=== PATIENT | female | born 1990 | race Caucasian/White ===

== ENCOUNTER 2019-01-02 13:38 | Emergency (ER) | payer MEDICAID, OTHER ==
[~2019-01-02] VITALS: Ht 170.2 cm; Wt 64.0 kg
[~2019-01-02 13:38] MED LIST: NITR100C6 PO
[2019-01-02 13:47] VITALS: BP 136/84
[2019-01-02] MEDS ORDERED: ibuprofen 200mg tablet PO ONE (13:55)
--- NOTE | 2019-01-02 14:15 | NUR ---
Pt has CCC x 4-5 days as well as tooth pain. Pt medicated for fever.
[2019-01-02] MEDS ORDERED: CLIN300C85 PO (14:19)
--- NOTE | 2019-01-02 14:29 | NUR ---
Pt ready for DC. Pt Temp is 102.5 after being medicated 25 minutes ago. Pt to recheck temp at home and take tylenol additionally if fever is not being controlled. Pt advised to return if fever not controlled with medications.
== END 2019-01-02 14:31 | disposition home or self-care (01) ==
LOC: ER 13:39
DX: K02.9 Dental caries, unspecified (principal); Z88.1 Allergy status to other antibiotic agents; Z88.8 Allergy status to other drugs, medicaments and biological substances; Z79.899 Other long term (current) drug therapy
CPT/HCPCS: 99283

== ENCOUNTER 2019-04-07 22:54 | Emergency (ER) | payer MEDICAID, OTHER ==
[~2019-04-07] VITALS: Ht 170.2 cm; Wt 59.3 kg
[~2019-04-07 22:54] MED LIST changes: +CLIN-96 PO
[2019-04-07 23:04] VITALS: BP 88/61
[2019-04-08] MEDS ORDERED: proparacaine 0.5% ophthalmic drops 15ml EACHEYE ONE (00:10)
[2019-04-08] MEDS ORDERED: ciprofloxacin 0.3% 2.5ml ophthalmic solution LEFTEYE SCH (01:14)
[2019-04-08] MEDS ORDERED: erythromycin ophthalmic ointment 1gm tube EACHEYE ONE (01:15)
== END 2019-04-08 01:30 | disposition home or self-care (01) ==
LOC: ER 22:54
DX: S05.02XA Injury of conjunctiva and corneal abrasion without foreign body, left eye, initial encounter (principal); Z88.1 Allergy status to other antibiotic agents; Z88.8 Allergy status to other drugs, medicaments and biological substances; X58.XXXA Exposure to other specified factors, initial encounter; Y93.89 Activity, other specified; Y92.89 Other specified places as the place of occurrence of the external cause; Y99.8 Other external cause status
CPT/HCPCS: 99283

== ENCOUNTER 2019-04-08 23:15 | Emergency (ER) | payer OTHER ==
[~2019-04-08] VITALS: Ht 170.2 cm; Wt 55.4 kg
[2019-04-08 23:22] VITALS: BP 101/69
[2019-04-08] MEDS ORDERED: proparacaine 0.5% ophthalmic drops 15ml EACHEYE ONE (23:55)
[2019-04-08] MEDS ORDERED: pilocarpine 2% ophthalmic drops 15ml EACHEYE ONE (23:55)
== END 2019-04-09 01:23 | disposition home or self-care (01) ==
LOC: ER 23:16
DX: H44.002 Unspecified purulent endophthalmitis, left eye (principal); Z88.1 Allergy status to other antibiotic agents; Z88.8 Allergy status to other drugs, medicaments and biological substances; Z79.899 Other long term (current) drug therapy
CPT/HCPCS: 99283

== ENCOUNTER 2019-08-19 12:26 | Emergency (ER) | payer SELFPAY ==
[~2019-08-19] VITALS: Ht 170.2 cm; Wt 58.5 kg
[~2019-08-19 12:26] MED LIST changes: +CLIN-90 PO; -CLIN-96 PO
[2019-08-19 12:33] VITALS: BP 107/70
[2019-08-19] MEDS ORDERED: CLIN-90 PO (13:17)
== END 2019-08-19 13:31 | disposition home or self-care (01) ==
LOC: ER 12:26
DX: K08.89 Other specified disorders of teeth and supporting structures (principal); Z88.1 Allergy status to other antibiotic agents
CPT/HCPCS: 99283

== ENCOUNTER 2020-07-22 08:20 | Emergency (ER) | payer MEDICAID ==
[~2020-07-22] VITALS: Ht 170.2 cm; Wt 61.4 kg
[~2020-07-22 08:20] MED LIST changes: -CLIN-90 PO; +CLIN-97 PO
[2020-07-22 08:35] VITALS: BP 119/69
[2020-07-22 11:18] LABS: BASOPHILS # (AUTO) 0.1 X10'3 (0-0.2); BASOPHILS % (AUTO) 1.1 % (0-1); EOSINOPHILS # (AUTO) 0.2 X10'3 (0-0.9); EOSINOPHILS % (AUTO) 1.7 % (0-6); HEMATOCRIT 34.6 % (35.0-45.0); HEMOGLOBIN 11.3 g/dl (12.0-16.0); LYMPHOCYTES # (AUTO) 1.4 X10'3 (1.1-4.8); MEAN CORPUSCULAR HEMOGLOBIN 28.7 PG (27.0-31.0); MEAN CORPUSCULAR HGB CONC 32.8 g/dL (33.0-36.5); MEAN CORPUSCULAR VOLUME 87.4 FL (78-98); MEAN PLATELET VOLUME 7.8 FL (7.4-10.4); MONOCYTES # (AUTO) 1.1 X10'3 (0-0.9); MONOCYTES % (AUTO) 11.4 % (2-12); NEUTROPHILS % (AUTO) 71.8 % (42-75); PLATELET COUNT 368 X10'3 (140-440); RED BLOOD COUNT 3.96 X10'6 (4.20-5.60); RED CELL DISTRIBUTION WIDTH 15.6 % (11.5-14.5); WHITE BLOOD COUNT 9.8 X10'3 (4.5-11.0)
[2020-07-22 11:38] LABS: ALANINE AMINOTRANSFERASE 61 U/L (12-78); ALBUMIN 3.6 G/DL (3.4-5.0); ALBUMIN/GLOBULIN RATIO 0.9 (1.1-1.5); ALKALINE PHOSPHATASE 69 IU/L (46-116); ANION GAP 5 (8-16); ASPARTATE AMINO TRANSFERASE 61 U/L (10-37); BILIRUBIN,TOTAL 0.5 MG/DL (0.1-1.0); BLOOD UREA NITROGEN 8 MG/DL (7-18); BUN/CREATININE RATIO 10.8 (6.6-38.0); CALCIUM 8.9 MG/DL (8.5-10.1); CHLORIDE 102 MMOL/L (99-107); CREATININE 0.74 MG/DL (0.40-0.90); GLUCOSE 96 MG/DL (70-104); POTASSIUM 3.8 MMOL/L (3.5-5.1); SODIUM 137 MMOL/L (135-145); TOTAL CARBON DIOXIDE 30.1 MMOL/L (24-32); TOTAL PROTEIN 7.6 G/DL (6.4-8.2); eGFR > 90 ML/MIN
[2020-07-22] MEDS ORDERED: CEPH250T PO (11:45)
[2020-07-22] MEDS ORDERED: DOXY100C77 PO (11:45)
== END 2020-07-22 12:22 | disposition home or self-care (01) ==
LOC: ER 08:21
DX: L03.116 Cellulitis of left lower limb (principal); M25.571 Pain in right ankle and joints of right foot; M25.572 Pain in left ankle and joints of left foot; R60.0 Localized edema; F17.200 Nicotine dependence, unspecified, uncomplicated; Z88.1 Allergy status to other antibiotic agents; Z88.8 Allergy status to other drugs, medicaments and biological substances; Z79.2 Long term (current) use of antibiotics; Z79.899 Other long term (current) drug therapy
CPT/HCPCS: 36415; 73610; 80053; 85025; 85651; 99284

== ENCOUNTER 2021-02-08 11:00 | Emergency (ER) | payer MEDICAID ==
[~2021-02-08] VITALS: Ht 170.2 cm; Wt 70.0 kg
[2021-02-08 11:03] VITALS: BP 115/68
--- NOTE | 2021-02-08 14:23 | NUR ---
NOT IN LOBBY
[2021-02-10] MEDS ORDERED: NO HOME MEDS (21:49)
== END 2021-02-08 14:24 | disposition left against medical advice (07) ==
LOC: ER 11:01
DX: M54.9 Dorsalgia, unspecified (principal); Z53.21 Procedure and treatment not carried out due to patient leaving prior to being seen by health care provider

== ENCOUNTER 2022-01-16 00:34 | Emergency (ER) | payer MEDICAID | END 2022-01-16 03:10 | disposition left against medical advice (07) | LOC: ER 00:35 | DX: B99.9 Unspecified infectious disease (principal); Z53.21 Procedure and treatment not carried out due to patient leaving prior to being seen by health care provider ==

== ENCOUNTER 2023-11-17 15:45 | Emergency (ER) | payer MEDICAID, OTHER ==
[~2023-11-17] VITALS: Ht 170.2 cm; Wt 125.0 kg
[2023-11-17 18:51] LABS: BASOPHILS # (AUTO) 0.1 X10'3 (0-0.2); BASOPHILS % (AUTO) 0.4 % (0-1); EOSINOPHILS # (AUTO) 0.1 X10'3 (0-0.9); EOSINOPHILS % (AUTO) 0.3 % (0-6); HEMATOCRIT 41.5 % (35.0-45.0); HEMOGLOBIN 13.6 g/dl (12.0-16.0); LYMPHOCYTES # (AUTO) 1.1 X10'3 (1.1-4.8); LYMPHOCYTES % (AUTO) 6.5 % (21-51); MEAN CORPUSCULAR HEMOGLOBIN 29.5 PG (27.0-31.0); MEAN CORPUSCULAR HGB CONC 32.7 g/dL (33.0-36.5); MEAN CORPUSCULAR VOLUME 90.1 FL (78-98); MONOCYTES # (AUTO) 1.4 X10'3 (0-0.9); MONOCYTES % (AUTO) 8.4 % (2-12); NEUTROPHILS # (AUTO) 14.2 X10'3 (1.8-7.7); NEUTROPHILS % (AUTO) 84.4 % (42-75); PLATELET COUNT 371 X10'3 (140-440); RED BLOOD COUNT 4.61 X10'6 (4.20-5.60); RED CELL DISTRIBUTION WIDTH 13.8 % (11.5-14.5); WHITE BLOOD COUNT 16.8 X10'3 (4.5-11.0)
[2023-11-17 18:59] LABS: ALANINE AMINOTRANSFERASE 53 U/L (12-78); ALKALINE PHOSPHATASE 75 IU/L (46-116); ANION GAP 9 (8-16); ASPARTATE AMINO TRANSFERASE 24 U/L (10-37); BILIRUBIN,TOTAL 0.2 MG/DL (0.1-1.0); BLOOD UREA NITROGEN 21 MG/DL (7-18); BUN/CREATININE RATIO 24.7 (10.0-20.0); CALCIUM 9.1 MG/DL (8.5-10.1); CHLORIDE 105 MMOL/L (99-107); CREATININE 0.85 MG/DL (0.40-0.90); GLUCOSE 125 MG/DL (70-104); POTASSIUM 4.1 MMOL/L (3.5-5.1); SODIUM 140 MMOL/L (135-145); TOTAL CARBON DIOXIDE 26.3 MMOL/L (24-32); eCRCL 92 ML/MIN; eGFR 77 ML/MIN
[2023-11-17 19:18] VITALS: BP 116/80; PULSE 71; RESP 17; TEMP 98.1; O2SAT 98
== END 2023-11-17 20:10 ==
LOC: EEVIPCON 15:45 → ER 15:45
DX: T40.601A Poisoning by unspecified narcotics, accidental (unintentional), initial encounter (principal); Z88.8 Allergy status to other drugs, medicaments and biological substances; Y92.89 Other specified places as the place of occurrence of the external cause
CPT/HCPCS: 36415; 71045; 80053; 85025; 93005; 99285